=== PATIENT | female | born 1955 | race Two or more races ===

== ENCOUNTER → 2024-03-17 | Outpatient (CLI) | payer MEDICAID, SELFPAY ==
--- NOTE | 2024-03-17 12:00 | XR_ITS ---
Examination: MRI cervical spine without intravenous contrast Date and time of exam: March 17, 2024 1438 hours INDICATIONS: Neck pain radiating down both arms numbness in the arms beginning 2 years ago Technique: Multiple axial and sagittal sections of the cervical spine to been obtained. T2 weighted sagittal sections, TR 3, 270, TE 117 T1-weighted sagittal sections, TR 500, TE 11 T1-weighted axial sections, TR 607, TE 12, axial sections TR 18, TE 27 and T2 weighted transverse sections, TR 3920, TE 122. Findings: Adequate alignment cervical vertebral bodies Intact odontoid Diffuse cervical disc desiccation Mild diffuse disc narrowing C4-5, C5-C6, C6-C7 No localized enlargement cervical cord C2-C3 no disc protrusion C3-C4 2 mm central subarticular osteophyte disc complex C4-C5 4 mm central osteophyte disc complex with advanced bilateral neural foraminal stenosis C5-C6 3 mm central subarticular osteophyte disc complex with advanced bilateral neural foraminal stenosis C6-C7 4 mm central osteophyte disc complex with advanced bilateral neural foraminal stenosis C7-T1 no disc protrusion IMPRESSION: Significant acquired spinal stenosis C4-C5, C5-C6, C6-C7 as above
== END | disposition home or self-care (01) ==
LOC: SMRI 03-18 08:12
PROVIDERS: Referring Provider Orthopaedic Surgery; Visit Provider Orthopaedic Surgery
DX: M48.02 Spinal stenosis, cervical region (principal)
CPT/HCPCS: 72141